=== PATIENT | female | born 1975 | race African-American/Black ===

== ENCOUNTER 2021-02-27 20:01 | Emergency (ER) | payer OTHER ==
[~2021-02-27] VITALS: Ht 165.1 cm; Wt 105.0 kg
[2021-02-27 20:56] VITALS: BP 85/79
== END 2021-02-27 21:08 | disposition home or self-care (01) ==
LOC: ER 20:01
DX: S90.415A Abrasion, left lesser toe(s), initial encounter (principal); M79.89 Other specified soft tissue disorders; X58.XXXA Exposure to other specified factors, initial encounter; Y93.9 Activity, unspecified; Y92.9 Unspecified place or not applicable
CPT/HCPCS: 99282